=== PATIENT | male | born 1945 | race Native Hawaiian/Other Pacific Islander ===

== ENCOUNTER 2018-05-19 13:37 | Outpatient (CLI) | payer OTHER | END 2018-05-19 19:51 | disposition home or self-care (01) | LOC: RAD 13:37 | DX: M79.671 Pain in right foot (principal) ==

== ENCOUNTER 2018-05-30 12:34 | Outpatient (CLI) | payer OTHER | END 2018-05-30 20:57 | disposition home or self-care (01) | LOC: MRI 12:34 | DX: M54.16 Radiculopathy, lumbar region (principal) ==